=== PATIENT | male | born 2000 | race Two or more races ===

== ENCOUNTER 2024-07-04 07:36 | Emergency (ER) | payer MEDICAID, OTHER ==
[~2024-07-04] VITALS: Ht 170.2 cm; Wt 62.3 kg
[2024-07-04] MEDS: LIDOCAINE 1% (LOCAL ANESTH.) PF 5ml SDV ID ONE (08:09)
[2024-07-04] MEDS: LIDOCAINE 1% HCL (LOCAL ANESTH.) INJ 20ML MDV ONE (08:09)
[2024-07-04] MEDS: NEOMYCIN-BACITRACIN-POLYM UNITDOSE PKG TOP OINT TOP ONE (08:09)
[2024-07-04] MEDS: TETANUS-DIPTH-ACEL PERTUSSIS 0.5ML SYR Tdap IM ONE (08:10)
[2024-07-04] MEDS: AMOXICILLIN/CLAVUL 875 MG TAB PO ONE (08:10)
--- NOTE | 2024-07-04 08:14 | ED.PDOC ---
History of Present Illness HPI Comments 24-year-old male presents with a chief complaint of dog bite to left hand x onset this morning. Patient states that he was bitten by a chihuahua on his left hand and now has a laceration/puncture wound to the inside of his 2nd and 3rd finger. Patient denies any nausea, vomiting, or diarrhea. Patient reports that the wound is painful. No other symptoms or modifying factors present at this time. Chief Complaint: Animal Bite Time Seen by MD: 07:43 Primary Care Provider: none Reviewed Notes: Medications, Allergies Allergies: Coded Allergies: NO KNOWN ALLERGIES (Unverified , 07/04/24) Home Meds Active Scripts Acetaminophen (Acetaminophen) 500 Mg Tab, 500 MG PO QIDP for 10 Days, #40 TAB 0 Refills Prov:JUNAID JAMESON NP 07/04/24 Amoxicillin & Pot Clavulanate (AUGMENTIN TABLET) 875 Mg Tb, 875 MG PO BID for 7 Days, #14 TAB 0 Refills Prov:JUNAID JAMESON NP 07/04/24 Information Source: Patient Mode of Arrival: Ambulatory Severity: Moderate Timing: Minutes Duration: Since onset Prehospital treatment: None Past Medical History PAST MEDICAL HISTORY: Denies Surgical History: Denies all surgeries Family History Family History: Reviewed,noncontributory to illness Social History Smoker: Non-Smoker Alcohol: Denies ETOH Use Drugs: Denies Drug Use Lives In: Home Constitutional: denies: chills, diaphoresis, fatigue, fever, malaise, sweats, weakness, others EENTM: denies: blurred vision, double vision, ear bleeding, ear discharge, ear drainage, ear pain, ear ringing, eye pain, eye redness, hearing loss, mouth pain, mouth swelling, nasal discharge, nose bleeding, nose congestion, nose pain, photophobia, tearing, throat pain, throat swelling, voice changes, others Respiratory: denies: cough, hemoptysis, orthopnea, SOB at rest, shortness of breath, SOB with excertion, stridor, wheezing, others Cardiovascular: denies: chest pain, dizzy spells, diaphoresis, Dyspnea on exertion, edema, irregular heart beat, left arm pain, lightheadedness, palpitations, PND, syncope, others Gastrointestinal: denies: abdomen distended, abdominal pain, blood streaked bowels, constipated, diarrhea, dysphagia, difficulty swallowing, hematemesis, melena, nausea, poor appetite, poor fluid intake, rectal bleeding, rectal pain, vomiting, others Genitourinary: denies: burning, dysuria, flank pain, frequency, hematuria, incontinence, penile discharge, penile sore, pain, testicle pain, testicle swelling, urgency, others Neurological: denies: dizziness, fainting, headache, left sided numbness, left sided weakness, numbness, paresthesia, pre-existing deficit, right sided numbness, right sided weakness, seizure, speech problems, tingling, tremors, weakness, others Musculoskeletal: denies: back pain, gout, joint pain, joint swelling, muscle pain, muscle stiffness, neck pain, others Integumetry: reports: wounds (LEFT HAND S/P DOG BITE); denies: bruises, change in color, change in hair/nails, dryness, laceration, lesions, lumps, rash, others Allergic/Immunocompromised: denies: Difficulty Healing, Frequent Infections, Hives, Itching, others Hematologic/Lymphatic: denies: anemia, blood clots, easy bleeding, easy bruising, swollen glands, others Endocrine: denies: excessive hunger, excessive sweating, excessive thirst, excessive urination, flushing, intolerance to cold, intolerance to heat, unexplained weight gain, unexplained weight loss, others Psychiatric: denies: anxiety, bipolar disorder, depression, hopeless, panic disorder, schizophrenia, sleepless, suicidal, others All Other Systems: Reviewed and Negative Physical Exam General Appearance: Mild Distress HEENT: Normal ENT Inspection, Pharynx Normal, TMs Normal Neck: Full Range of Motion, Non-Tender, Normal, Normal Inspection Respiratory: Chest Non-Tender, Lungs Clear, No Accessory Muscle Use, No Respiratory Distress, Normal Breath Sounds Cardiovascular: No Edema, No JVD, No Murmur, No Gallop, Normal Peripheral Pulses, Regular Rate/Rhythm Breast Exam: Deferred Gastrointestinal: No Organomegaly, Non Tender, No Pulsatile Mass, Normal Bowel Sounds, Soft Genitalia: Deferred Pelvic: Deferred Rectal: Deferred Extremities: No calf tenderness, Normal capillary refill, Normal inspection, Normal range of motion, Non-tender, No pedal edema Musculoskeletal : Apperance: Normal Neurologic: Alert, learning and development intern II-XII nml as Tested, No Motor Deficits, Normal Affect, Normal Mood, No Sensory Deficits Cerebellar Function: Normal Reflexes: Normal Skin: Dry, Lacerations (Approximately a 2-3 cm laceration over the dorsum of the right hand with no active bleeding), Normal Color, Warm Lymphatic: No Adenopathy Was a procedure done? Was a procedure done?: Yes Sedation Sedation?: No Laceration Repair : Location left hand Length 3 Anesthetic: Lidocaine Laceration Repair Prep: Saline, Betadine Laceration Repair Wound Comple: epidermis/dermis repair Laceration Repair: Size (4-0), Simple, Bacitracin, Non-adherent gauze, Gauze Informed consent obtained: Yes Risks, benefits, and alternati: Yes Differential Dx Considerations may include: Dog bite, laceration X-Ray, Labs, Meds, VS Vital Signs Date Time Temp Pulse Resp B/P (MAP) Pulse Ox O2 Delivery O2 Flow Rate FiO2 07/04/24 09:19 92 16 100 Room Air 07/04/24 09:19 97.8 92 18 111/78 (89) 100 97.8 07/04/24 07:48 98.4 118 18 144/77 (99) 99 Current Medications Medications (Trade) Dose Ordered Sig/Anamaria Route Start Time Stop Time Status Last Admin Neomycin/ Polymyxin/ Bacitracin (Triple Antibiotic) 1 applic ONCE ONCE TOP 07/04/24 08:00 07/04/24 08:01 DC 07/04/24 08:09 Diphtheria/ Tetanus/Acell Pertussis (Boostrix T-Dap) 0.5 ml ONCE ONCE IM 07/04/24 08:00 07/04/24 08:01 DC 07/04/24 08:10 Amoxicillin/ Clavulanate Potassium (Augmentin Tablet) 875 mg ONCE ONCE PO 07/04/24 08:00 07/04/24 08:01 DC 07/04/24 08:10 Left Hand X-Ray Impression: There is no evidence of acute fracture or dislocation. The visualized joint space is well maintained. The alignment is anatomical. There is no radiopaque foreign body. The patient was given a tetanus shot The patient was also given Augmentin here in the emergency department's The patient is being cleaned The patient will be signed out to the CYNTHIA Jameson X-Ray, Labs, Meds, VS Comment The skin edges of the laceration were infiltrated with1% lidocaine The skin surrounding the laceration was scrubbed with Betadine soaked sterile gauze The laceration was irrigated under high-pressure with a 60 mL syringe A total of 1L sterile water was used. Including diluted Betadine solution The laceration was prepped in sterile fashion with sterile drapes On examination under direct light, there was no foreign body seen The laceration was repaired in simple interrupted technique using Ethilon There was no continuing bleeding on repair. There were no complications related to repair Antibiotics * Tetanus updated Education and follow-up instructions provided Wound check in 2 days Return sooner for signs of infection such as fevers, increased pain, redness, green, yellow discharge, or any concerns Keep wound dry for 24 to 48 hours; dry dressing may be changed Protect from sunlight and keep area clean and dry. Use soap and water if it gets dirty High risk of possible scarring and education provided on ways to minimize scarring after wound heals Also provided education on possible complications post procedure including wound dehiscence, infection, etc. Images Reviewed?: Images reviewed and evaluated by me Time of 1ST Reevaluation: 08:13 Reevaluation 1ST: Unchanged Patient Education/Counseling: Diagnosis, Treatment, Prognosis Family Education/Counseling: No Family Present Departure 1 Departure Time of Disposition: 11:42 Impression: Primary Impression: Dog bite Qualified Codes: W54.0XXA - Bitten by dog, initial encounter Disposition: HOME / SELF CARE / HOMELESS Condition: Stable e-Prescriptions Acetaminophen (Acetaminophen) 500 Mg Tab 500 MG PO QIDP for 10 Days, #40 TAB 0 Refills Prov: JUNAID JAMESON NP 07/04/24 Amoxicillin & Pot Clavulanate (AUGMENTIN TABLET) 875 Mg Tb 875 MG PO BID for 7 Days, #14 TAB 0 Refills Prov: JUNADI JAMESON DIESEL BUS MECHANIC 07/04/24 Discharged With: Self Critical Care Note Critical Care Time?: No Stability Stability form required: No Heart Score Heart Score: Heart Score Response (Comments) Value History N/A 0 EKG N/A 0 Age N/A 0 Risk Factors N/A 0 Troponin N/A 0 Total 0 I personally scribed for PHUONG RAMIREZ MD ([email or web address]) on 07/04/24 at 08:13. Electronically submitted by Shekhar Morin ([email or web address]). I personally scribed for PHUONG RAMIREZ MD ([email or web address]) on 07/04/24 at 10:48. Electronically submitted by Shekhar Morin ([email or web address]). PHUONG RAMIREZ MD Jul 04, 2024 08:13 JUNAID JAMESON NP Jul 04, 2024 12:38
[2024-07-04 09:19] VITALS: BP 111/78; PULSE 92; RESP 16; TEMP 97.8; O2SAT 100
--- NOTE | 2024-07-04 09:28 | DVH ---
CLINICAL INDICATION: trauma TECHNIQUE: 2 radiographic views of the left hand were obtained. Comparison: None FINDINGS/IMPRESSION: There is no evidence of acute fracture or dislocation. The visualized joint space is well maintained. The alignment is anatomical. There is no radiopaque foreign body.
[2024-07-04] MEDS ORDERED: ACET500T58 PO (12:38)
[2024-07-04] MEDS ORDERED: AUG875T PO (12:38)
== END 2024-07-04 12:46 | disposition home or self-care (01) ==
LOC: ER 07:36
DX: S61.412A Laceration without foreign body of left hand, initial encounter (principal); S61.452A Open bite of left hand, initial encounter; W54.0XXA Bitten by dog, initial encounter; Y93.89 Activity, other specified; Y92.89 Other specified places as the place of occurrence of the external cause; Y99.8 Other external cause status
CPT/HCPCS: 12002; 73120; 90471; 90715; 99283; J2003

== ENCOUNTER 2025-07-24 16:55 | Inpatient (IN) | payer SELFPAY ==
[~2025-07-24] VITALS: Ht 172.7 cm; Wt 61.4 kg
[~2025-07-24 16:55] MED LIST: ACET500T58 PO; AUG875T PO
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
[2025-07-24 19:23] LABS: Hematocrit 41.3 % (41.0-53.0); Hemoglobin 13.5 g/dL (13.5-17.5); Mean Corpuscular Hemoglobin 27.3 pg (28.0-32.0); Mean Corpuscular Volume 83.9 fL (80.0-100.0); Nucleated Red Blood Cells % 0.0 %
[2025-07-24 19:35] LABS: Urine Protein, UAD TRACE (Negative)
[2025-07-24 19:41] LABS: Alanine Aminotransferase 21 U/L (7-40); Albumin 4.5 g/dL (3.2-4.8); Alkaline Phosphatase 71 U/L (46-116); Anion Gap 14 (5-15); BUN/Creatinine Ratio 14.3 (10.0-20.0); Blood Urea Nitrogen 14 mg/dL (9-23); Calcium 9.3 mg/dL (8.7-10.4); Carbon Dioxide 23 mmol/L (20-31); Chloride 104 mmol/L (98-107); Potassium 3.6 mmol/L (3.5-5.1); Sodium 141 mmol/L (136-145); Total Protein 7.5 g/dL (5.7-8.2)
[2025-07-24 19:42] LABS: Bilirubin, Total 0.7 mg/dL (0.2-1.0)
[2025-07-24] MEDS: SODIUM CHLORIDE 0.9% 1,000 ML IV ONE ×2 (19:44→23:41)
[2025-07-24] MEDS: HYDROcodone-ACET 5/325MG TAB PO ONE (19:52)
[2025-07-24] MEDS: TETANUS-DIPTH-ACEL PERTUSSIS 0.5ML SYR Tdap IM ONE (19:53)
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
[2025-07-24 20:39] LABS: Glucose 198 mg/dL (74-106)
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
[2025-07-24] MEDS ORDERED: ACETAMINOPHEN 325 MG TAB PO PRN (23:30)
[2025-07-24] MEDS ORDERED: NITROGLYCERIN 0.4 MG SL TAB SL PRN (23:30)
[2025-07-24] MEDS ORDERED: MORPHINE SULFATE INJ 2 MG/ml SYRG IV PRN (23:30)
[2025-07-24 23:54] VITALS: O2SAT 98
[2025-07-25 01:15] VITALS: BP 112/73; PULSE 70; RESP 16; TEMP 98; O2SAT 100
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
[2025-07-25] MEDS ORDERED: SODIUM CHLOR 0.9% PF (SALINE LOCK) 10ML VIAL/SYR IV SCH (06:00)
== END 2025-07-25 02:57 | disposition left against medical advice (07) | DRG 872 ==
LOC: ER 16:55 → OVERFLOW 23:18
PROVIDERS: ATTEND Emergency Medicine
DX: A41.9 Sepsis, unspecified organism (principal); N39.0 Urinary tract infection, site not specified; S20.229A Contusion of unspecified back wall of thorax, initial encounter; Z53.29 Procedure and treatment not carried out because of patient's decision for other reasons; Z79.899 Other long term (current) drug therapy; V29.99XA Rider (driver) (passenger) of other motorcycle injured in unspecified traffic accident, initial encounter; Y93.89 Activity, other specified; Y92.89 Other specified places as the place of occurrence of the external cause; Y99.8 Other external cause status
CPT/HCPCS: 36415; 71250; 74176; 80053; 81001; 85025; 87040; 90715; 99291; G0378